=== PATIENT | female | born 1990 | race African-American/Black ===

== ENCOUNTER 2024-07-23 16:34 | Observation (INO) | payer MEDICAID, OTHER ==
[2024-07-23] MEDS ORDERED: PREN-96 PO (17:14)
--- NOTE | 2024-07-23 19:31 | DVH ---
LIMITED OB ULTRASOUND > 14 WKS: HISTORY: Back pain and cramping TECHNIQUE: Multiple real-time grayscale images of the gravid uterus with duplex Doppler color flow an d M-mode spectral analysis. TRANSDUCER: Transabdominal FINDINGS: IUP single live fetus at 28 weeks 0 days based on composite averages of the BPD, head circumference, abdominal circumference and femur length Estimated weight 1111 grams heart rate 161 beats per minute LOIS 14.5 cm Cervix 3.4 cm Breech Presentation Anterior Grade 2 Placenta without previa or abruption. IMPRESSION: 1. IUP single live fetus at 28 weeks 0 days AUA corresponding to an ADY of 10/15/2024 2. FHR: 161 bpm
--- NOTE | 2024-07-23 19:57 | DVHDS2 ---
Physician Discharge Progress N Final Diagnosis: IUP 28 wk, abdominal pain Not in labor Operations or Procedures: Operations or Procedures NST, appropriate for gestational age Labor check, cervix closed OB ultrasound w/ cervical length complete (all WNL) Condition on Discharge: Stable Disposition: Home Discharge Instructions: Diet: Regular Activity: No Restrictions, As Tolerated Follow Up/Referral: with Primary OB as scheduled Medications: N/A Follow Up Care: Discharge Statement: "Patient was advised to return to the ER or call 911 if any headaches, dizziness, shortness of breath, chest pain, abdominal pain, bleeding, fevers, or worsening of medical condition. Patient was counseled about treatment plan, medications, possible side effects, patientverbalized understanding. All questions were answered to the best of my ability. This discharge took greater then 30 minutes in planning, reviewing documentation, counseling the patient, and discussing with other team members." LEX SYKES DO Jul 23, 2024 19:57
== END 2024-07-23 19:30 | disposition home or self-care (01) ==
LOC: LDRP 16:34
PROVIDERS: ADMIT Obstetrics & Gynecology; ATTEND Obstetrics & Gynecology
DX: O99.891 Other specified diseases and conditions complicating pregnancy (principal); M54.9 Dorsalgia, unspecified; R10.9 Unspecified abdominal pain; Z98.890 Other specified postprocedural states; Z79.899 Other long term (current) drug therapy; Z3A.28 28 weeks gestation of pregnancy
CPT/HCPCS: 59025; 76805; 81002; 94760; G0378

== ENCOUNTER 2024-08-04 03:31 | Observation (INO) | payer MEDICAID ==
[~2024-08-04] VITALS: Ht 167.6 cm; Wt 99.8 kg
[~2024-08-04 03:31] MED LIST: PREN-96 PO
[2024-08-04] MEDS ORDERED: TERBUTALINE SULFATE 1 MG/ML 1ML VIAL SC ONE (03:49)
[2024-08-04] MEDS: TERBUTALINE SULFATE 1 MG/ML 1ML VIAL SC SCH (03:52)
[2024-08-04] MEDS: LACTATED RINGER'S 1,000 ML IV ONE (04:17)
[2024-08-04] MEDS: LACTATED RINGER'S 1,000 ML IV SCH (04:41)
--- NOTE | 2024-08-04 04:49 | DVH ---
OB ULTRASOUND <14 WEEKS: HISTORY: Vaginal Bleeding No Care TECHNIQUE: Transabdominal limited 3rd trimester OB ultrasound examination was performed. COMPARISON: None FINDINGS: See below IMPRESSION: 1. Single intrauterine with heart rate 136 bpm. 2. Amniotic fluid index 18.2 cm, which is within the normal range. 3. The placenta is anterior without evidence of placenta previa or abruption. 4. The cervix measures 4.2 cm in length, without abnormal funneling of the internal cervical os.
[2024-08-04] MEDS ORDERED: NIFEdipine 10 MG CAP PO ONE (05:07)
[2024-08-04] MEDS: NIFEdipine 10 MG CAP PO ONE (05:14)
[2024-08-04 06:15] LABS: Basophils # (auto) 0 10 ^3/uL (0-0.2); Basophils % (auto) 0.2 % (0.0-2.0); Eosinophils # (auto) 0.1 10 ^3/uL (0-0.8); Eosinophils % (auto) 0.9 % (0.0-7.0); Hematocrit 31.5 % (36.0-46.0); Hemoglobin 10.4 g/dL (12.2-16.2); Lymphocytes # (auto) 1.8 10 ^3/uL (0.4-5.4); Lymphocytes % (auto) 20.4 % (10.0-50.0); Mean Corpuscular Hemoglobin 32.2 pg (28.0-32.0); Mean Corpuscular Hgb Conc. 33.1 g/dL (32.0-36.0); Mean Corpuscular Volume 97.2 fL (80.0-100.0); Monocytes # (auto) 0.7 10 ^3/uL (0-1.3); Neutrophils # (auto) 6.2 10 ^3/uL (1.6-8.6); Neutrophils % (auto) 70.5 % (37.0-80.0); Platelet Count (auto) 224 10^3/uL (140-450); Red Blood Cells 3.24 10^6/uL (4.0-5.20); Red Cell Distribution Width 14.9 % (11.8-14.3); White Blood Cell 8.7 10^3/uL (4.4-10.8)
[2024-08-04 06:24] LABS: INR 0.96 (0.9-1.15); Partial Thromboplastin Time 23.7 SEC (24.5-34.5); Prothrombin Time 10.2 sec (9.3-11.8)
[2024-08-04 06:43] LABS: Alanine Aminotransferase 18 U/L (7-40); Albumin 3.4 g/dL (3.2-4.8); Alkaline Phosphatase 57 U/L (46-116); Anion Gap 12 (5-15); Aspartate Aminotransferase 14 U/L (13-40); Sodium 138 mmol/L (136-145)
[2024-08-04 06:47] LABS: Carbon Dioxide 18 mmol/L (20-31); Chloride 108 mmol/L (98-107); Glucose 137 mg/dL (74-106); Potassium 3.2 mmol/L (3.5-5.1)
[2024-08-04 06:48] LABS: BUN/Creatinine Ratio 8.5 (10.0-20.0); Bilirubin, Total 0.2 mg/dL (0.2-1.0); Blood Urea Nitrogen < 5 mg/dL (9-23); Total Protein 5.6 g/dL (5.7-8.2)
[2024-08-04 06:59] LABS: Urine Bacteria FEW /hpf (None Seen); Urine Blood 3+ /uL (Negative); Urine Clarity Turbid (Clear); Urine Color Colorless (Yellow); Urine Mucus FEW (None Seen); Urine Protein, UAD Negative (Negative); Urine Specific Gravity 1.014 (1.001-1.035); Urine Squamous Epithelial Cell FEW /hpf (<5); Urine Urobilinogen Normal (Negative); Urine WBC 57 /HPF (0-5)
[2024-08-04] MEDS ORDERED: NIFE10CA52 PO (07:01)
[2024-08-04 08:00] LABS: Amphetamine Screen, Urine Neg (NEGATIVE); Barbiturate Scree,Urine Neg (NEGATIVE); Benzodiazephine Screen, Urine Neg (NEGATIVE); Cannabinoid Screen, Urine Neg (NEGATIVE); Cocaine Screen, Urine Neg (NEGATIVE); Opiate Scree,Urine Neg (NEGATIVE); Phencyclidine Screen, Urine Neg (NEGATIVE)
--- NOTE | 2024-08-04 13:08 | DVHDS2 ---
Physician Discharge Progress N Final Diagnosis: CRAMPING Operations or Procedures: Operations or Procedures NST,,SONO Condition on Discharge: Good Disposition: Home Discharge Instructions: Diet: Regular Activity: No Restrictions, As Tolerated Medications: NA Follow Up Care: Specialist: 2D IN [facility] Discharge Statement: "Patient was advised to return to the ER or call 911 if any headaches, dizziness, shortness of breath, chest pain, abdominal pain, bleeding, fevers, or worsening of medical condition. Patient was counseled about treatment plan, medications, possible side effects, patientverbalized understanding. All questions were answered to the best of my ability. This discharge took greater then 30 minutes in planning, reviewing document ation, counseling the patient, and discussing with other team members." SHIRA HAND DO Aug 04, 2024 13:08
[2024-08-06 13:06] LABS: Chlamydia Trachomatis, NAA Negative (Negative); Neisseria gonorrhoeae, NAA Negative (Negative)
[2024-08-07 03:06] LABS: Rubella Antibodies, IgG 1.54 index (Immune >0.99)
[2024-08-07 04:06] LABS: RPR Non Reactive (Non Reactive)
== END 2024-08-04 07:46 | disposition home or self-care (01) ==
LOC: LDRP 03:31
PROVIDERS: ADMIT Obstetrics & Gynecology; ATTEND Obstetrics & Gynecology
DX: O62.9 Abnormality of forces of labor, unspecified (principal); O26.853 Spotting complicating pregnancy, third trimester; Z98.890 Other specified postprocedural states; Z79.899 Other long term (current) drug therapy; Z3A.30 30 weeks gestation of pregnancy
CPT/HCPCS: 36415; 59025; 76815; 80053; 80307; 81001; 81002; 83036; 85025; 85610; 85730; 86592; 86703; 86762; 86780; 86803; 86850; 86900; 86901; 87340; 87491; 87591; 94760; 96360; 96361; 96372; G0378; J3105